=== PATIENT | male | born 1970 | race Two or more races ===

== ENCOUNTER 2018-04-03 14:32 | Emergency (ER) | payer MEDICAID ==
[~2018-04-03] VITALS: Ht 165.1 cm; Wt 76.8 kg
[2018-04-03 14:35] VITALS: BP 108/74
== END 2018-04-03 17:03 | disposition home or self-care (01) ==
LOC: ED 16:57
DX: M54.41 Lumbago with sciatica, right side (principal); I10 Essential (primary) hypertension
CPT/HCPCS: 72110; 72220; 99284